=== PATIENT | male | born 1955 | race Two or more races ===

== ENCOUNTER 2019-08-02 15:15 | Emergency (ER) | payer BC ==
[~2019-08-02] VITALS: Ht 172.7 cm; Wt 123.6 kg
--- NOTE | 2019-08-02 15:43 | PHYS DOC ---
Adult General Chief Complaint Chief Complaint: SHORTNESS OF BREATH HPI HPI 63-year-old male presents with shortness of breath. He was at the store buying groceries when he began to feel short of breath and a little lightheaded. He had rapid breathing, but no chest pain. He sat down to rest and concentrated in his breathing. He was able to calm back down. He did not notice rapid heartbeat. The patient has no history of cardiac problems. There is a strong family history of cardiac disease. He does have an aortic aneurysm that has not been checked in 3 or 4 years. He does not remember the size. He is alert as needed diuretic for lower leg swelling. He denies any significant change in his swelling. Denies fever or chills. No history of lung problems. No diagnosis of COPD. He only smoked for a few years when he was younger. Review of Systems Review of Systems Constitutional: Denies fever or chills [] Eyes: Denies change in visual acuity, redness, or eye pain [] HENT: Denies nasal congestion or sore throat [] Respiratory: shortness of breath [] Cardiovascular: No additional information not addressed in HPI [] GI: Denies abdominal pain, nausea, vomiting, bloody stools or diarrhea [] : Denies dysuria or hematuria [] Musculoskeletal: Denies back pain or joint pain [] Integument: Denies rash or skin lesions [] Neurologic: Denies headache, focal weakness or sensory changes [] Endocrine: Denies polyuria or polydipsia [] All other systems were reviewed and found to be within normal limits, except as documented in this note. Current Medications Current Medications Current Medications Medications (Trade) Dose Ordered Sig/Paula Start Time Stop Time Status Last Admin Dose Admin Sodium Chloride 1,000 ml @ 1,000 mls/hr 1X ONCE 08/02/19 15:45 08/02/19 16:44 UNV Physical Exam Physical Exam Constitutional: Well developed, morbidly obese, well nourished, no acute distress, non-toxic appearance. [] HENT: Normocephalic, atraumatic, bilateral external ears normal, oropharynx moist, no oral exudates, nose normal. [] Eyes: PERRLA, EOMI, conjunctiva normal, no discharge. [] Neck: Normal range of motion, no tenderness, supple, no stridor. [] Cardiovascular: Heart rate 120, regular rhythm, no murmur [] Lungs & Thorax: Bilateral breath sounds clear to auscultation [] Abdomen: Bowel sounds normal, soft, no tenderness, no masses, no pulsatile masses. [] Skin: Warm, dry, no erythema, no rash. [] Back: No tenderness, no CVA tenderness. [] Extremities: No tenderness, no cyanosis, no clubbing, ROM intact, no edema. [] Neurologic: Alert and oriented X 3, normal motor function, normal sensory function, no focal deficits noted. [] Psychologic: Affect normal, judgement normal, mood normal. [] EKG EKG [] Radiology/Procedures Radiology/Procedures [] Impressions: CT ANGIOGRAPHY CHEST History: Shortness of breath. History of aortic aneurysm. Technique: CT of the chest was performed with contrast. PE protocol. Maximum intensity projection coronal and sagittal reconstructions were performed. Exposure: One or more of the following individualized dose reduction techniques were utilized for this examination: 1. Automated exposure control 2. Adjustment of the mA and/or kV according to patient size 3. Use of iterative reconstruction technique. Comparison: None Findings: Chest: Extensive bilateral pulmonary emboli with saddle embolus. There is evidence of right heart strain with dilation of the right ventricle and reflux of contrast into the IVC. Compensatory enlargement of the pulmonary artery. No aortic aneurysm or dissection. No pathologic axillary, mediastinal or hilar adenopathy. Calcified right paramediastinal probable lymph node. Coronary artery calcification. Chronic loss opacities within the left upper lobe and right upper lobe. No pleural effusion. Upper abdomen: Indeterminant right adrenal lesion measures 3.2 x 3.0 cm. Bones: No pathologic osseous lesions. Impression: 1. Extensive bilateral pulmonary emboli with saddle embolus and findings of right heart strain. 2. Bilateral upper lobe groundglass opacities, may represent developing infarct given pulmonary emboli. Recommend follow-up to ensure resolution. 3. Indeterminate right adrenal lesion. Recommend nonemergent adrenal protocol CT. FOR INTERNAL CODING PURPOSES Critical result: Findings discussed with WHIT ANDRE at 08/02/2019 4:32 PM. RESULT CODE: (C) Electronically signed by: Demetrio Villasenor DO (08/02/2019 4:40 PM) [facility] DICTATED AND SIGNED BY: DEMETRIO VILLASENOR DO DATE: 08/02/19 1640 CC: WHIT ANDRE DO; FÁTIMA KELSEY ~ Course & Med Decision Making Course & Med Decision Making Pertinent Labs and Imaging studies reviewed. (See chart for details) The patient's labs are remarkable for an elevated troponin of 0.123. His EKG shows sinus tachycardia 120. The patient's CT angiogram of the chest shows multiple pulmonary emboli bilaterally with saddle PE. It is not an occlusive saddle PE. I spoke with interventional radiology as well as vascular surgery (Dr. Tinoco) at [facility], and they have recommended that he is not a candidate for thrombolytic therapy at this time. Dr. Gonzalez, IR, advised we start him on a heparin drip immediately and watch him closely. If his blood pressure retaken significant drop he recommended TPA and then may reconsider intervention. I explained all this to the patient. He is willing to be transferred to [facility]. I spoke with Dr. Haskins, cardiology and made him aware of the patient. He agreed to transfer. I spoke with the hospitalist, Dr. Krishnan and he has accepted the patient for transfer and admission. 51 minutes of critical care time was found this patient exclusive of other billable procedures. [] Dragon Disclaimer Dragon Disclaimer This electronic medical record was generated, in whole or in part, using a voice recognition dictation system. Departure Departure: Impression: Primary Impression: Pulmonary emboli Additional Impressions: Elevated troponin Right ventricular dilation Disposition: 02 XFER [facility] Condition: GUARDED Referrals: FÁTIMA KELSEY (PCP) Problem Qualifiers Primary Impression: Pulmonary emboli Pulmonary embolism type: saddle Chronicity: acute Acute cor pulmonale pr esence: without acute cor pulmonale Qualified Codes: I26.92 - Saddle embolus of pulmonary artery without acute cor pulmonale WHIT ANDRE DO Aug 02, 2019 15:43
[2019-08-02] MEDS ORDERED: IV NORMAL SALINE 1,000ML 1,000 ML IV ONE (15:45)
[2019-08-02] MEDS ORDERED: IOHEXOL 350 MG/ML 100 ML VIAL. IV ONE (16:00)
[2019-08-02 16:01] LABS: BASO % 0 % (0-3); EOS # 0.1 x10^3/uL (0.0-0.7); EOS % 0 % (0-3); HEMATOCRIT 46.7 % (39.0-53.0); HEMOGLOBIN 15.5 g/dL (13.0-17.5); LYMPH # 1.1 x10^3/uL (1.0-4.8); LYMPH % 9 % (24-48); MEAN CORPUSCULAR HEMOGLOBIN 30 pg (25-35); MEAN CORPUSCULAR HGB CONC 33 g/dL (31-37); MEAN CORPUSCULAR VOLUME 90 fL (79-100); MONO # 0.8 x10^3/uL (0.0-1.1); MONO % 6 % (0-9); NEUT # 10.4 x10^3uL (1.8-7.7); NEUT % 84 % (31-73); PLATELET COUNT 189 x10^3/uL (140-400); RED BLOOD COUNT 5.18 x10^6/uL (4.30-5.70); RED CELL DISTRIBUTION WIDTH 13.8 % (11.5-14.5); WHITE BLOOD COUNT 12.3 x10^3/uL (4.0-11.0)
[2019-08-02 16:04] LABS: CALCIUM 8.8 mg/dL (8.5-10.1); CREATININE 1.4 mg/dL (0.7-1.3); POTASSIUM 3.7 mmol/L (3.5-5.1)
[2019-08-02 16:16] LABS: ALBUMIN 3.5 g/dL (3.4-5.0); TOTAL BILIRUBIN 0.6 mg/dL (0.2-1.0); TOTAL PROTEIN 7.1 g/dL (6.4-8.2)
[2019-08-02] MEDS ORDERED: HEPARIN 25,000UTS/250ML PREMIX 250 ML IV PRN (16:17)
--- NOTE | 2019-08-02 16:21 | RAD ---
Single AP view of the chest. Comparison: None. Indication: Shortness of breath Findings: The heart is enlarged. There is no pneumothorax or effusion. No air space or interstitial disease. Impression: 1. No acute cardiopulmonary process. Electronically signed by: Sly Murillo MD (08/02/2019 4:18 PM) [facility]
[2019-08-02] MEDS ORDERED: HEPARIN for IV BOLUS 10,000 UNIT/10 ML VIAL. IV PRN ×3 (16:30)
[2019-08-02] MEDS ORDERED: HEPARIN for IV BOLUS 10,000 UNIT/10 ML VIAL. IV ONE (16:30)
[2019-08-02 16:39] LABS: INFLUENZA A PATIENT NEGATIVE (NEGATIVE); INFLUENZA B PATIENT NEGATIVE (NEGATIVE)
--- NOTE | 2019-08-02 16:42 | RAD ---
CT ANGIOGRAPHY CHEST History: Shortness of breath. History of aortic aneurysm. Technique: CT of the chest was performed with contrast. PE protocol. Maximum intensity projection coronal and sagittal reconstructions were performed. Exposure: One or more of the following individualized dose reduction techniques were utilized for this examination: 1. Automated exposure control 2. Adjustment of the mA and/or kV according to patient size 3. Use of iterative reconstruction technique. Comparison: None Findings: Chest: Extensive bilateral pulmonary emboli with saddle embolus. There is evidence of right heart strain with dilation of the right ventricle and reflux of contrast into the IVC. Compensatory enlargement of the pulmonary artery. No aortic aneurysm or dissection. No pathologic axillary, mediastinal or hilar adenopathy. Calcified right paramediastinal probable lymph node. Coronary artery calcification. Chronic loss opacities within the left upper lobe and right upper lobe. No pleural effusion. Upper abdomen: Indeterminant right adrenal lesion measures 3.2 x 3.0 cm. Bones: No pathologic osseous lesions. Impression: 1. Extensive bilateral pulmonary emboli with saddle embolus and findings of right heart strain. 2. Bilateral upper lobe groundglass opacities, may represent developing infarct given pulmonary emboli. Recommend follow-up to ensure resolution. 3. Indeterminate right adrenal lesion. Recommend nonemergent adrenal protocol CT. FOR INTERNAL CODING PURPOSES Critical result: Findings discussed with WHIT ANDRE at 08/02/2019 4:32 PM. RESULT CODE: (C) Electronically signed by: Demetrio Villasenor DO (08/02/2019 4:40 PM) [facility]
[2019-08-02 17:28] VITALS: BP 125/81
--- NOTE | 2019-08-02 22:27 | EKG ---
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
== END 2019-08-02 18:03 | disposition short-term general hospital (02) ==
LOC: ER 15:26
DX: I26.92 Saddle embolus of pulmonary artery without acute cor pulmonale (principal); R79.89 Other specified abnormal findings of blood chemistry; I51.7 Cardiomegaly; R06.02 Shortness of breath; R42 Dizziness and giddiness
CPT/HCPCS: 36415; 71045; 71275; 80053; 83880; 84484; 85025; 85610; 85730; 87804; 93005; 96361; 96365; 96374; 99285; J1644; J7030

== ENCOUNTER → 2019-12-20 | Outpatient (CLI) | payer BC, MEDICARE ==
--- NOTE | 2019-12-20 11:51 | CARD ---
MR#: [id number] Date of Study: 12/20/2019 Ordering Physician: MAYDA ANGELES, Referring Physician: AMYDA ANGELES, Tech: Imelda Urbina APPROVED REPORT EXAM: Two-dimensional and M-mode echocardiogram with Doppler and color Doppler. Other Information Quality : AverageHR: 97bpm INDICATION Peripheral Artery Disease RISK FACTORS Hypertension 2D DIMENSIONS RVDd2.8 (2.9-3.5cm)Left Atrium(2D)3.4 (1.6-4.0cm) IVSd1.6 (0.7-1.1cm)Aortic Root(2D)4.9 (2.0-3.7cm) LVDd5.5 (3.9-5.9cm)LVOT Diameter2.5 (1.8-2.4cm) PWd1.4 (0.7-1.1cm)LVDs4.2 (2.5-4.0cm) FS (%) 23.4 %SV67.9 ml LVEF(%)46.3 (>50%) Aortic Valve AoV Peak Andres.121.7cm/sAoV VTI24.8cm AO Peak GR.5.9mmHgLVOT Peak Andres.102.2cm/s LVOT VTI 20.70cmAO Mean GR.3mmHg MITZI (VMAX)4.84bl9CPX (VTI)4.18cm2 Mitral Valve MV E Goioywox66.1cm/sMV E Peak Gr.3mmHg MV DECEL [id number] A Vygbrtnv78.7cm/s MV E Mean Gr.2mmHgE/A Ratio0.7 Pulmonary Valve PV Peak Vdjzvmzo06.6cm/sPV Peak Grad.3mmHg Tricuspid Valve TR P. Dotbsydj304cg/sRAP YYJPULIY9ctZq TR Peak Gr.05ckMbFNNC93muGz Pulmonary Vein S1 Dzguutjg09.9cm/sD2 Kgyulfxg55.6cm/s LEFT VENTRICLE The left ventricle is normal size. There is moderate concentric left ventricular hypertrophy. The lef t ventricular systolic function is normal. The Ejection Fraction is 55%. There is normal LV segmental wall motion. Transmitral Doppler flow pattern is Grade I-abnormal relaxation pattern. RIGHT VENTRICLE The right ventricle is normal size. There is normal right ventricular wall thickness. Systolic functi on is borderline reduced. ATRIA The left atrium size is normal. The right atrium is mildly dilated. The interatrial septum is intact with no evidence for an atrial septal defect or patent foramen ovale as noted on 2-D or Doppler imagi ng. AORTIC VALVE The aortic valve is normal in structure and function. Doppler and Color Flow revealed no significant aortic regurgitation. There is no significant aortic valvular stenosis. MITRAL VALVE The mitral valve is normal in structure and function. There is no evidence of mitral valve prolapse. There is no mitral valve stenosis. Mitral valve mean gradient 1.58 mmHg. Doppler and Color Flow revea led no mitral valve regurgitation noted. TRICUSPID VALVE The tricuspid valve is normal in structure and function. Doppler and Color Flow revealed trace tricus pid regurgitation with an estimated PAP of 33 mmHg. There is no tricuspid valve stenosis. PULMONIC VALVE The pulmonic valve is not well visualized. Doppler and Color Flow revealed trace pulmonic valvular re gurgitation. GREAT VESSELS The aortic root is mildly to moderately enlarged. The IVC is dilated. PERICARDIAL EFFUSION There is no evidence of significant pericardial effusion. Critical Notification Critical Value: No <Conclusion> The left ventricular systolic function is normal. The Ejection Fraction is 55%. There is normal LV segmental wall motion. Transmitral Doppler flow pattern is Grade I-abnormal relaxation pattern. Trace tricuspid regurgitation with an estimated PAP of 33 mmHg. There is no evidence of significant pericardial effusion. Signed by : Rafael Higginbotham, Electronically Approved : 12/20/2019 11:51:18
== END | disposition home or self-care (01) ==
LOC: ECHO 07:56
PROVIDERS: ATTEND Internal Medicine Cardiovascular Disease
DX: I11.9 Hypertensive heart disease without heart failure (principal); I73.9 Peripheral vascular disease, unspecified
CPT/HCPCS: 93306

== ENCOUNTER → 2020-02-28 | Outpatient (CLI) | payer BC, MEDICARE ==
[2020-02-29 00:07] LABS: HOMOCYTSINE LEVEL 20.6 umol/L (0.0-17.2)
== END ==
LOC: LAB 09:27
PROVIDERS: ATTEND Internal Medicine Pulmonary Disease
DX: R06.02 Shortness of breath (principal)
CPT/HCPCS: 36415; 81240; 81241; 83090; 85384; 85610; 85730

== ENCOUNTER → 2021-03-12 | Outpatient (CLI) | payer BC, MEDICARE ==
--- NOTE | 2021-03-12 17:30 | CARD ---
MR#: [id number] Date of Study: 03/12/2021 Ordering Physician: MAYDA VASQUEZ, Referring Physician: MAYDA VASQUEZ, Tech: Zuleika Lyleindia, [facility] APPROVED REPORT EXAM: Two-dimensional and M-mode echocardiogram with Doppler and color Doppler. Other Information Quality : AverageHR: 100bpm Technically limited study due to body habitus. INDICATION Pulmonary Embolism RISK FACTORS Hypertension 2D DIMENSIONS RVDd3.3 (2.9-3.5cm)Left Atrium(2D)3.0 (1.6-4.0cm) IVSd1.3 (0.7-1.1cm)Aortic Root(2D)5.0 (2.0-3.7cm) LVDd5.1 (3.9-5.9cm)LVOT Diameter2.1 (1.8-2.4cm) PWd1.3 (0.7-1.1cm)LVDs3.1 (2.5-4.0cm) FS (%) 39.2 %SV85.5 ml Aortic Valve AoV Peak Andres.128.2cm/sAoV VTI20.9cm AO Peak GR.6.6mmHgLVOT Peak Andres.123.4cm/s LVOT VTI 21.15cmAO Mean GR.3mmHg MITZI (VMAX)3.27qw9OJY (VTI)3.41cm2 Mitral Valve MV E Zjljmhoj19.5cm/sMV E Peak Gr.3mmHg MV DECEL HCNE078lyKY A Dtvspfyd98.4cm/s MV E Mean Gr.2mmHgE/A Ratio0.7 Tricuspid Valve TR P. Jqadszoq007qe/sRAP BTYGVHLC7keZb TR Peak Gr.03gpEjVLEA41cjZn LEFT VENTRICLE The left ventricle is normal size. There is mild to moderate concentric left ventricular hypertrophy. The left ventricular systolic function is normal and the ejection fraction is within normal range. T he Ejection Fraction is 60-65%. There is normal LV segmental wall motion. Transmitral Doppler flow pa ttern is Grade I-abnormal relaxation pattern. RIGHT VENTRICLE The right ventricle is borderline dilated. There is normal right ventricular wall thickness. The righ t ventricular systolic function is normal. ATRIA The left atrium size is normal. The right atrium is mildly dilated. AORTIC VALVE The aortic valve is normal in structure and function. Doppler and Color Flow revealed no significant aortic regurgitation. There is no significant aortic valvular stenosis. Calculated aortic valve area is 3.8 cm2 with maximum pressure gradient of 7 mmHg and mean pressure gradient of 3 mmHg. MITRAL VALVE The mitral valve is normal in structure and function. There is no evidence of mitral valve prolapse. There is no mitral valve stenosis. Doppler and Color Flow revealed no mitral valve regurgitation note d. TRICUSPID VALVE The tricuspid valve is normal in structure and function. Doppler and Color Flow revealed mild tricusp id regurgitation with an estimated PAP of 35 mmHg. There is no tricuspid valve stenosis. PULMONIC VALVE The pulmonic valve is not well visualized. Doppler and Color Flow revealed no pulmonic valvular regur gitation. GREAT VESSELS The aortic root is moderately enlarged measuring 4.9 cm. The ascending aorta is mildly dilated measur ing 3.9 cm. The IVC is normal in size and collapses >50% with inspiration. PERICARDIAL EFFUSION There is no evidence of significant pericardial effusion. Critical Notification Critical Value: No <Conclusion> The left ventricle is normal size. The left ventricular systolic function is normal and the ejection fraction is within normal range. The Ejection Fraction is 60-65%. There is mild to moderate concentric left ventricular hypertrophy. Doppler and Color Flow revealed no significant aortic regurgitation. There is no significant aortic valvular stenosis. Doppler and Color Flow revealed no mitral valve regurgitation noted. Doppler and Color Flow revealed mild tricuspid regurgitation with an estimated PAP of 35 mmHg. The aortic root is moderately enlarged measuring 4.9 cm. Signed by : Mayda Vasquez MD Electronically Approved : 03/12/2021 17:29:37
== END ==
LOC: ECHO 09:09
PROVIDERS: ATTEND Internal Medicine Cardiovascular Disease
DX: I36.1 Nonrheumatic tricuspid (valve) insufficiency (principal); I51.7 Cardiomegaly; I26.92 Saddle embolus of pulmonary artery without acute cor pulmonale
CPT/HCPCS: 93306

== ENCOUNTER 2021-04-06 13:41 | Emergency (ER) | payer BC, MEDICARE ==
[~2021-04-06] VITALS: Ht 172.7 cm; Wt 123.6 kg
--- NOTE | 2021-04-06 14:32 | PHYS DOC ---
Past History Past Medical History: COPD, Hypertension Additional Past Medical Histor: BLOOD CLOTS Past Surgical History: No Surgical History Alcohol Use: Rarely General Adult EDM: Chief Complaint: SHORTNESS OF BREATH HPI: HPI: 65-year-old male presents with shortness of breath. He has been feeling more short of breath the last 3 to 4 days. The patient was having some intermittent chest discomfort but that is resolved today. He cannot walk across the house without getting short of breath. This is concerning to him because he had a pulmonary embolus about a year ago that presented this exact same way. The patient had his legs ultrasounded within the last couple of days but did not get results. Patient had a cardiac work-up year ago and were no significant findings at that time. Patient denies fever or chills. He has no other si gnificant symptoms at this time. Review of Systems: Review of Systems: Constitutional: Denies fever or chills Eyes: Denies change in visual acuity HENT: Denies nasal congestion or sore throat Respiratory: shortness of breath without cough Cardiovascular: Chest pain GI: Denies abdominal pain, nausea, vomiting, bloody stools or diarrhea : Denies dysuria Musculoskeletal: Denies back pain or joint pain Integument: Denies rash Neurologic: Denies headache, focal weakness or sensory changes Endocrine: Denies polyuria or polydipsia Lymphatic: Denies swollen glands Psychiatric: Denies depression or anxiety Allergies: Allergies: Allergies Coded Allergies Type Severity Reaction Last Updated Verified No Known Drug Allergies 08/02/19 No Physical Exam: PE: Constitutional: Well developed, well nourished, morbidly obese, no acute distress, non-toxic appearance. [] HENT: Normocephalic, atraumatic, bilateral external ears normal, oropharynx moist, no oral exudates, nose normal. [] Eyes: PERRLA, EOMI, conjunctiva normal, no discharge. [] Neck: Normal range of motion, no tenderness, supple, no stridor. [] Cardiovascular: Heart rate 115, regular rhythm, no murmur [] Lungs & Thorax: Bilateral breath sounds clear to auscultation [] Abdomen: Bowel sounds normal, soft, no tenderness, no masses, no pulsatile masses. [] Skin: Warm, dry, no erythema, no rash. [] Back: No tenderness, no CVA tenderness. [] Extremities: No tenderness, no cyanosis, no clubbing, ROM intact, 2+ nonpitting edema bilateral lower extremities [] Neurologic: Alert and oriented X 3, normal motor function, normal sensory function, no focal deficits noted. [] Psychologic: Affect normal, judgement normal, mood normal. [] Current Patient Data: Vital Signs: Vital Signs Date Time Temp Pulse Resp B/P (MAP) Pulse Ox O2 Delivery O2 Flow Rate FiO2 04/06/21 14:08 97.7 96 18 135/54 (81) 91 EKG: EKG: Sinus rhythm, rate 115, leftward axis, no ST elevation or depression. Inverted T waves is V2 through V6. [] Radiology/Procedures: Radiology/Procedures: [] Impressions: INDICATION: Reason: SOB / Spl. Instructions: / History: COMPARISON: July 2019 FINDINGS: Single view of chest obtained. Cardiac mediastinal silhouette is enlarged with calcific atherosclerosis. Postoperative changes to the right proximal humerus with degenerative changes. Left lung base is obscured by the overlying cardiac silhouette. Definite consolidation is not seen in other portions of the lung Calcified lymph nodes at mediastinum which can be seen with chronic granulomatous disease. IMPRESSION: * Left lung base is obscured by the overlying cardiac silhouette without definite consolidation elsewhere in the lungs. Electronically signed by: Vinnie Gerardo MD (04/06/2021 2:36 PM) [id number] DICTATED AND SIGNED BY: VINNIE GERARDO MD DATE: 04/06/21 1434 CC: WHIT ANDRE DO; FÁTIMA KELSEY PA ~MTH0 0 EXAMINATION: CTA Chest With IV contrast INDICATION:65 years, Male, tachycardia, shortness of breath. COMPARISON: 08/02/2019. TECHNIQUE: Spiral CTA was obtained from the jugular notch through the posterior costophrenic recess. 3-D MIPS, sagittal and coronal reformats were obtained. Exposure: One or more of the following individualized dose reduction techniques were utilized for this examination: 1. Automated exposure control 2. Adjustment of the mA and/or kV according to patient size 3. Use of iterative reconstruction technique. FINDINGS: LUNGS/PLEURA: Central airways are patent. Multiple small patchy groundglass and consolidative opacities in both upper lobes, left lower and right middle lobes. Subsegmental atelectasis in the lingula. No pleural effusion or pneumothorax. No suspicious pulmonary nodule. MEDIASTINUM: No pathologic mediastinal or hilar adenopathy. Calcified granulomas in the right lobe. The thoracic aorta is normal in caliber. Enlarged pulmonary trunk, measures 3.9 cm, compatible with pulmonary arterial hypertension. Multiple bilateral pulmonary emboli, saddle within the main main pulmonary a rteries, extend to the lobar, segmental and subsegmental arteries of bilateral lungs. Occlusive within the distal right main pulmonary artery. No significant right heart strain. The heart is normal in size. No pericardial effusion. Mild calcified coronary atherosclerosis. The visualized thyroid and the esophagus are unremarkable. AXILLA/SOFT TISSUE: No supraclavicular or axillary adenopathy. Regional soft tissues are within normal limits. UPPER ABDOMEN: The visualized upper abdomen appears unremarkable. BONES: No evidence of acute fractures or aggressive osseous lesions. IMPRESSION: 1. Saddle pulmonary embolism in the main pulmonary arteries extend to bilateral lobar, segmental and subsegmental branches. No significant right heart strain. 2. Similar enlarged pulmonary trunk, consistent with pulmonary arterial hypertension. 3. New multiple small bilateral patchy groundglass and consolidative opacities, differential includes multifocal pneumonias versus pulmonary infarcts. FOR INTERNAL CODING PURPOSES Critical result: Findings discussed with DO Kapil at 04/06/2021 4:12 PM. RESULT CODE: (C) Electronically signed by: Camille Zabala MD (04/06/2021 4:13 PM) [facility] DICTATED AND SIGNED BY: CAMILLE ZABALA MD DATE: 04/06/21 1557 CC: WHIT ANDRE DO; FÁTIMA KELSEY [place] ~MTH0 0 Heart Score: C/O Chest Pain: Yes HEART Score for Chest Pain: HEART Score for Chest Pain Response (Comments) Value History Slighlty/Non-Suspicious 0 ECG Nonspecific Repolarizatio 1 Age > 65 2 Risk Factors 1 or 2 Risk Factors 1 Troponin >1-<3x Normal Limit 1 Total 5 Risk Factors: Risk Factors: DM, Current or recent (<one month) smoker, HTN, HLP, family history of CAD, obesity. Risk Scores: Score 0 - 3: 2.5% MACE over next 6 weeks - Discharge Home Score 4 - 6: 20.3% MACE over next 6 weeks - Admit for Clinical Observation Score 7 - 10: 72.7% MACE over next 6 weeks - Early Invasive Strategies Course & Med Decision Making: Course & Med Decision Making Pertinent Labs and Imaging studies reviewed. (See chart for details) The patient's EKG shows a rate of 115. I believe I see P waves. Chest x-ray is clear for acute findings. He does have an elevated troponin of 0.195. I have ordered a CTA of the chest given his history of PE and presentation. The patient CTA did show saddle pulmonary embolus with extension bilaterally. See official read for more details. There does not appear to be right heart strain but there is pulmonary hypertension. I will transfer the patient to [facility] for ICU admission. I spoke with Dr. Bruce and he has accepted the patient for transfer. We have started the patient on weight-based Lovenox, first dose given in the ER. The patient will transfer by ambulance. [] Dragon Disclaimer: Dragon Disclaimer: This electronic medical record was generated, in whole or in part, using a voice recognition dictation system. Departure Departure: Impression: Primary Impression: Saddle pulmonary embolus Qualified Codes: I26.92 - Saddle embolus of pulmonary artery without acute cor pulmonale Additional Impressions: Pulmonary hypertension Elevated troponin I level Disposition: 02 SHORT TERM HOSPITAL Condition: GUARDED Referrals: FÁTIMA KELSEY (PCP) WHIT ANDRE DO Apr 06, 2021 14:32
--- NOTE | 2021-04-06 14:38 | RAD ---
INDICATION: Reason: SOB / Spl. Instructions: / History: COMPARISON: July 2019 FINDINGS: Single view of chest obtained. Cardiac mediastinal silhouette is enlarged with calcific atherosclerosis. Postoperative changes to th e right proximal humerus with degenerative changes. Left lung base is obscured by the overlying cardi ac silhouette. Definite consolidation is not seen in other portions of the lung Calcified lymph nodes at mediastinum which can be seen with chronic granulomatous disease. IMPRESSION: * Left lung base is obscured by the overlying cardiac silhouette without definite consolidation else where in the lungs. Electronically signed by: Dirk Veloz MD (04/06/2021 2:36 PM) [id number]
[2021-04-06 15:08] LABS: BASO # 0.1 x10^3/uL (0.0-0.2); BASO % 1 % (0-3); EOS # 0.1 x10^3/uL (0.0-0.7); EOS % 1 % (0-3); HEMATOCRIT 45.3 % (39.0-53.0); HEMOGLOBIN 15.2 g/dL (13.0-17.5); LYMPH # 1.6 x10^3/uL (1.0-4.8); LYMPH % 14 % (24-48); MEAN CORPUSCULAR HEMOGLOBIN 31 pg (25-35); MEAN CORPUSCULAR HGB CONC 34 g/dL (31-37); MEAN CORPUSCULAR VOLUME 92 fL (79-100); MONO % 9 % (0-9); NEUT # 8.7 x10^3uL (1.8-7.7); NEUT % 76 % (31-73); PLATELET COUNT 175 x10^3/uL (140-400); RED BLOOD COUNT 4.93 x10^6/uL (4.30-5.70); RED CELL DISTRIBUTION WIDTH 14.1 % (11.5-14.5); WHITE BLOOD COUNT 11.5 x10^3/uL (4.0-11.0)
[2021-04-06 15:09] LABS: CALCIUM 8.8 mg/dL (8.5-10.1); CREATININE 1.1 mg/dL (0.7-1.3); POTASSIUM 4.2 mmol/L (3.5-5.1)
[2021-04-06 15:22] LABS: ALBUMIN 3.4 g/dL (3.4-5.0); TOTAL BILIRUBIN 0.7 mg/dL (0.2-1.0); TOTAL PROTEIN 6.7 g/dL (6.4-8.2)
[2021-04-06] MEDS ORDERED: CONTRAST GIVEN. MC PRN (15:30)
[2021-04-06] MEDS: IOHEXOL 350 MG/ML 100 ML VIAL. IV ONE (15:42)
--- NOTE | 2021-04-06 16:16 | RAD ---
EXAMINATION: CTA Chest With IV contrast INDICATION:65 years, Male, tachycardia, shortness of breath. COMPARISON: 08/02/2019. TECHNIQUE: Spiral CTA was obtained from the jugular notch through the posterior costophrenic recess. 3-D MIPS, sagittal and coronal reformats were obtained. Exposure: One or more of the following individualized dose reduction techniques were utilized for thi s examination: 1. Automated exposure control 2. Adjustment of the mA and/or kV according to patient size 3. Use of iterative reconstruction technique. FINDINGS: LUNGS/PLEURA: Central airways are patent. Multiple small patchy groundglass and consolidative opaciti es in both upper lobes, left lower and right middle lobes. Subsegmental atelectasis in the lingula. N o pleural effusion or pneumothorax. No suspicious pulmonary nodule. MEDIASTINUM: No pathologic mediastinal or hilar adenopathy. Calcified granulomas in the right lobe. T he thoracic aorta is normal in caliber. Enlarged pulmonary trunk, measures 3.9 cm, compatible with pu lmonary arterial hypertension. Multiple bilateral pulmonary emboli, saddle within the main main pulmo nary arteries, extend to the lobar, segmental and subsegmental arteries of bilateral lungs. Occlusive within the distal right main pulmonary artery. No significant right heart strain. The heart is shazia l in size. No pericardial effusion. Mild calcified coronary atherosclerosis. The visualized thyroid a nd the esophagus are unremarkable. AXILLA/SOFT TISSUE: No supraclavicular or axillary adenopathy. Regional soft tissues are within shazia l limits. UPPER ABDOMEN: The visualized upper abdomen appears unremarkable. BONES: No evidence of acute fractures or aggressive osseous lesions. IMPRESSION: 1. Saddle pulmonary embolism in the main pulmonary arteries extend to bilateral lobar, segmental and subsegmental branches. No significant right heart strain. 2. Similar enlarged pulmonary trunk, consistent with pulmonary arterial hypertension. 3. New multiple small bilateral patchy groundglass and consolidative opacities, differential includes multifocal pneumonias versus pulmonary infarcts. FOR INTERNAL CODING PURPOSES Critical result: Findings discussed with DO Kapil at 04/06/2021 4:12 PM. RESULT CODE: (C) Electronically signed by: Jane Zabala MD (04/06/2021 4:13 PM) [facility]
[2021-04-06 16:25] VITALS: BP 120/63
[2021-04-06] MEDS: ENOXAPARIN ** NOTE DOSE ** SYRINGE SQ ONE (16:54)
[2021-04-06 17:13] LABS: BILIRUBIN,URINE NEG (NEG); CLARITY,URINE TURBID; COLOR,URINE AMBER; GLUCOSE,URINE NEG (NEG); NITRITE,URINE NEG (NEG)
[2021-04-06 17:14] LABS: BACTERIA,URINE FEW /HPF (0-FEW); RBC,URINE 20-40 /HPF (0-2); SQUAMOUS EPITHELIAL CELL,UR OCC /LPF
--- NOTE | 2021-04-06 19:49 | EKG ---
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
== END 2021-04-06 17:33 | disposition short-term general hospital (02) ==
LOC: ER 13:41
DX: I26.92 Saddle embolus of pulmonary artery without acute cor pulmonale (principal); I27.20 Pulmonary hypertension, unspecified; R79.89 Other specified abnormal findings of blood chemistry
CPT/HCPCS: 36415; 71045; 71275; 80053; 81001; 83880; 84484; 85025; 87086; 93005; 96372; 99285; J1650; Q9967

== ENCOUNTER → 2021-11-12 | Outpatient (CLI) | payer MEDICARE, BC ==
--- NOTE | 2021-11-13 08:46 | CARD ---
MR#: [id number] Date of Study: 11/12/2021 Ordering Physician: MAYDA ANGELES, Referring Physician: MAYDA ANGELES, Tech: Theo Waterman [facility] APPROVED REPORT EXAM: Two-dimensional and M-mode echocardiogram with Doppler and color Doppler. Other Information Quality : AverageHR: 90bpm Rhythm : NSRTechnically limited study due to INDICATION Hypertension/HCVD Previous pulmonary embolism RISK FACTORS Hypertension 2D DIMENSIONS IVSd1.2 (0.7-1.1cm)Aortic Root(2D)5.0 (2.0-3.7cm) LVDd5.4 (3.9-5.9cm)LVOT Diameter2.2 (1.8-2.4cm) PWd1.3 (0.7-1.1cm)LA Asrygh09 (18-58mL) LVDs2.8 (2.5-4.0cm)FS (%) 49.1 % SV113.7 mlLVEF(%)80.0 (>50%) Aortic Valve AoV Peak Andres.118.7cm/sAoV VTI22.0cm AO Peak GR.5.6mmHgLVOT Peak Andres.109.4cm/s LVOT VTI 24.38cmAO Mean GR.3mmHg MITZI (VMAX)3.45ws9HNL (VTI)4.06cm2 AI P 1/2 Zwgi390qs Mitral Valve MV E Vmordpjt06.3cm/sMV DECEL RIPN056oa MV A Aouzsnqs62.4cm/sE/A Ratio0.6 Pulmonary Valve PV Peak Khzsvpid48.9cm/sPV Peak Grad.3mmHg Tricuspid Valve TR P. Hphbyxnp605ts/sTR Peak Gr.31mmHg LEFT VENTRICLE The left ventricle is normal size. There is mild concentric left ventricular hypertrophy. The left ve ntricular systolic function is normal and the ejection fraction is within normal range. EF 55% There is normal LV segmental wall motion. Transmitral Doppler flow pattern is Grade I-abnormal relaxation p attern. No left ventricle thrombus noted on this study. There is no ventricular septal defect visuali zed. There is no left ventricular aneurysm. There is no mass noted in the left ventricle. RIGHT VENTRICLE The right ventricle is normal size. There is normal right ventricular wall thickness. The right ventr icular systolic function is normal. ATRIA The left atrium size is normal. The right atrium size is normal. The interatrial septum is intact wit h no evidence for an atrial septal defect or patent foramen ovale as noted on 2-D or Doppler imaging. AORTIC VALVE The aortic valve is mildly sclerotic. Doppler and Color Flow revealed trace aortic regurgitation. The re is no significant aortic valvular stenosis. There is no aortic valvular vegetation. MITRAL VALVE The mitral valve is normal in structure and function. There is no evidence of mitral valve prolapse. There is no mitral valve stenosis. Doppler and Color Flow revealed no mitral valve regurgitation note d. TRICUSPID VALVE The tricuspid valve is normal in structure and function. Doppler and Color Flow revealed trace tricus pid regurgitation. The PA pressure was estimated at 41 mmHg. There is no tricuspid valve prolapse or vegetation. There is no tricuspid valve stenosis. PULMONIC VALVE Doppler and Color Flow revealed no pulmonic valvular regurgitation. There is no pulmonic valvular jo-ann nosis. GREAT VESSELS The aortic root at the level of the sinus of valsalva is dilated at (5.0cm) The ascending aorta is mi ldly dilated at (4.0cm) PERICARDIAL EFFUSION There is no evidence of significant pericardial effusion. Critical Notification Critical Value: No <Conclusion> The left ventricular systolic function is normal and the ejection fraction is within normal range. EF 55% There is normal LV segmental wall motion. The aortic root at the level of the sinus of valsalva is dilated at (5.0cm) The ascending aorta is mildly dilated at (4.0cm) Signed by : Raza Quezada, Electronically Approved : 11/13/2021 08:46:26
== END ==
LOC: ECHO 10:32
PROVIDERS: ATTEND Internal Medicine Cardiovascular Disease
DX: I35.8 Other nonrheumatic aortic valve disorders (principal); I51.7 Cardiomegaly; I26.92 Saddle embolus of pulmonary artery without acute cor pulmonale
CPT/HCPCS: 93306

== ENCOUNTER 2021-11-23 12:41 | Emergency (ER) | payer BC, MEDICARE ==
[~2021-11-23] VITALS: Ht 172.7 cm; Wt 123.6 kg
[2021-11-23 12:54] VITALS: BP 137/89
[2021-11-23] MEDS ORDERED: OXYMETAZOLINE 0.05% NASAL SPRAY 30ML BOTTLE. NS ONE (13:00)
--- NOTE | 2021-11-23 13:10 | PHYS DOC ---
Past History Past Medical History: COPD, Hypertension Additional Past Medical Histor: Blood clots - on Eliquis (ARMINDA OTTO) Past Surgical History: No Surgical History (ARMINDA OTTO) Alcohol Use: None Drug Use: None (ARMINDA OTTO) General Adult EDM: Chief Complaint: NOSEBLEED HPI: HPI: Patient is a 65 year old male on Eliquis for prior PE who presents with 3-day history of left-sided nosebleed. Patient presents today because he started bleeding from the right naris as well. He presents with nosebleed plugs in bilateral nares. Patient has visited ENT for persistent nosebleed in the past, however he was not on blood thinners at that time. Patient denies lightheadedness, weakness, pallor, headache. (ARMINDA OTTO) Review of Systems: Review of Systems: ROS negative or noncontributory except as mentioned in HPI. (ARMINDA OTTO) Current Medications: Current Meds: Current Medications Oxymetazoline HCl (Afrin) 4 spray 1X ONCE NS ; Start 11/23/21 at 13:00; Stop 11/23/21 at 13:01; Status DC Tranexamic Acid (Cyklokapron) 1,000 mg 1X ONCE TOP ; Start 11/23/21 at 13:30; Stop 11/23/21 at 13:31; Status DC (ARMINDA OTTO) Allergies: Allergies: Allergies Coded Allergies Type Severity Reaction Last Updated Verified No Known Drug Allergies 08/02/19 No (ARMINDA OTTO) Physical Exam: PE: Constitutional: Well developed, well nourished, no acute distress, non-toxic appearance. HENT: Normocephalic, atraumatic, bilateral external ears normal, oropharynx moist, no oral exudates, left naris with moderate amount of blood, right naris minimal amount of blood. Eyes: EOMI, no conjunctival pallor, no discharge. Neck: Normal range of motion, no stridor. Skin: Warm, pink, dry, no erythema, no rash, no pallor. Extremities: No no cyanosis, no clubbing, ROM grossly intact. Neurologic: Alert and oriented x4, normal motor function, normal sensory function, steady and symmetrical upright gait, no focal deficits noted. (ARMINDA OTTO) Current Patient Data: Vital Signs: Vital Signs Date Time Temp Pulse Resp B/P (MAP) Pulse Ox O2 Delivery O2 Flow Rate FiO2 11/23/21 12:54 94 18 137/89 (105) 98 (ARMINDA OTTO) Heart Score: C/O Chest Pain: No (ARMINDA OTTO) Course & Med Decision Making: Course & Med Decision Making Pertinent Labs and Imaging studies reviewed. (See chart for details) Patient is a 65-year-old male on Eliquis who presents with nosebleed x3 days. On presentation, nasal tampons were removed and patient was instructed to blow his nose. At that time, Afrin soaked gauze was applied to bilateral nares. Then applied nasal clamp and left pressure for period of approximately 20-25 minutes. At that time, bleeding had not stopped. Tranexamic acid soaked Rhino Rocket was applied to the left naris. Patient was instructed to leave the Rhino Rocket in place until he is able to visit with ENT. Return precautions were provided. Patient understands and is agreeable to discharge plan. (ARMINDA OTTO) Dragon Disclaimer: Dragon Disclaimer: This electronic medical record was generated, in whole or in part, using a voice recognition dictation system. (ARMINDA OTTO) Nose Bleed Procedure Nose Bleed Procedure Indication: Epistaxis Procedure: The patient was positioned appropriately and the nares were cleared as well as possible. The bleeding site was packed with Rhino Rocket coated in tranexamic acid. Hemostasis was achieved. The patient tolerated the procedure very well. Complications: None. (ARMINDA OTTO) Attending Co-Sign The patient was seen and interviewed as well as examined at the bedside. The chart was reviewed. The case was discussed. Agree with the plan of care. (WHIT ANDRE DO) Departure Departure: Impression: Primary Impression: Left-sided epistaxis Disposition: HOME / SELF CARE / HOMELESS Condition: IMPROVED Referrals: FÁTIMA KELSEY (PCP) KEN BARRON DO Patient Instructions: Nosebleed, Nilg-ih-Ajai Additional Instructions: EMERGENCY DEPARTMENT GENERAL DISCHARGE INSTRUCTIONS Thank you for coming to [facility] (ED) today and trusting us with you care. We trust that you had a positive experience in our Emergency Department. If you wish to speak to the department management, you may call the director at [phone]. YOUR FOLLOW UP INSTRUCTIONS ARE FOLLOWS: 1. Follow up with your primary care doctor. If you do not have a primary doctor, please ask for a resource list of physicians or clinics that may be able to assist you with follow up care. 2. The emergency provider has interpreted your imaging studies, if any were ordered. The radiology hiv prevention specialist also reviewed them. If there is a change in the findings, you will be notified in 48 hours when at all possible. 3. If a lab test or culture has been done, your results will be reviewed and you will be notified if you need a change in treatment. 4. Follow instructions verbalized to you and refer to the printouts if needed. ADDITIONAL INSTRUCTIONS AND INFORMATION: 1. Your care today has been supervised by a physician who is specially trained in emergency care. Many problems require more than one evaluation for a complete diagnosis and treatment. We recommend that you schedule your follow up appointment as recommended to ensure complete treatment of you illness or injury. If you are unable to obtain follow up care and continue to have a problem, or if your condition worsens, we recommend that you return to the ED. 2. We are not able to safely determine your condition over the phone nor are we able to give sound medical advice over the phone. For these safety reasons, if you call for medical advice we will ask you to come to the ED for further evaluation. 3. If you have any questions regarding these discharge instructions please call the ED at [phone]. SAFETY INFORMATION: In the interest of safety, wellness, and injury prevention; we encourage you to wear your seat belt, if you smoke; quite smoking, and we encourage family to use a protective helmet for bicycling and other sporting events that present an increased risk for head injury. IF YOUR SYMPTOMS WORSEN OR NEW SYMPTOMS DEVELOP, OR YOU HAVE CONCERNS ABOUT YOUR CONDITION; OR IF YOUR CONDITION WORSENS WHILE YOU ARE WAITING FOR YOUR FOLLOW UP APPOINTMENT; EITHER CONTACT YOUR PRIMARY CARE DOCTOR, THE PHYSICIAN WHOSE NAME AND NUMBER YOU WERE GIVEN, OR RETURN TO THE ED IMMEDIATELY. ARMINDA OTTO November 23, 2021 13:10 WHIT ANDRE DO November 24, 2021 06:08
[2021-11-23] MEDS ORDERED: TRANEXAMIC ACID 1,000 MG/10 ML VIAL. ONE (13:23)
[2021-11-23] MEDS ORDERED: TRANEXAMIC ACID 1,000 MG/10 ML VIAL. TOP ONE (13:30)
== END 2021-11-23 14:11 | disposition home or self-care (01) ==
LOC: ER 12:41
DX: R04.0 Epistaxis (principal); I10 Essential (primary) hypertension; J44.9 Chronic obstructive pulmonary disease, unspecified
CPT/HCPCS: 30901; 99284